=== PATIENT | male | born 1985 ===

== ENCOUNTER 2016-06-18 16:49 | Emergency (ER) | payer BC ==
[2016-06-18 17:13] VITALS: BP 126/71
--- NOTE | 2016-06-18 18:46 | UC ---
Throat Pain/Nasal Jared HPI - HPI Summary HPI Summary: complaint of cough for approx 1 week intermittent nasal congestion chest hurts when he coughs unable to sleep d/t cough coughing so hard at night he vomited 1x productive cough with yellow sputum intermittent headache denies sore throat, denies muscle aches or fever or chills has taken mucinex, dayquil, nyquil, airborne - History of Current Complaint Chief Complaint: UCGeneralIllness Stated Complaint: COUGH Time Seen by Provider: 06/18/16 18:33 Hx Obtained From: Patient - Allergies/Home Medications Allergies/Adverse Reactions: Allergies Allergy/AdvReac Type Severity Reaction Status Date / Time No Known Allergies Allergy Verified 06/18/16 17:13 Home Medications: Home Medications Qrbhdlnfcisee-Bjfulfoxaf-Azjxu [Nyquil Severe Cold/Flu 5-6.25-10-325 mg/15Ml] 1 liq PO DAILY 06/18/16 [History Confirmed 06/18/16] guaiFENesin ER TAB [Mucinex*] 600 mg PO BID 06/18/16 [History Confirmed 06/18/16 ] PMH/Surg Hx/FS Hx/Imm Hx Previously Healthy: Yes - Surgical History Surgical History: None - Family History Known Family History: Positive: Hypertension - parents Negative: Cardiac Disease, Diabetes - Social History Occupation: Employed Full-time Lives: With Family Alcohol Use: Rare Substance Use Type: None Smoking Status (MU): Never Smoked Tobacco Type: Smokeless Tobacco Review of Systems Constitutional: Negative Skin: Negative Eyes: Negative ENT: Sore Throat Respiratory: Cough Cardiovascular: Negative Gastrointestinal: Negative Genitourinary: Negative Motor: Negative Neurovascular: Negative Musculoskeletal: Negative Neurological: Negative Psychological: Negative All Other Systems Reviewed And Are Negative: Yes Physical Exam Triage Information Reviewed: Yes Appearance: No Pain Distress, Well-Nourished Vital Signs: Initial Vital Signs Temp 98.9 F 06/18/16 17:09 Pulse 73 06/18/16 17:09 Resp 14 06/18/16 17:09 BP 126/71 06/18/16 17:09 Pulse Ox 100 06/18/16 17:09 Vital Signs Reviewed: Yes Eyes: Positive: Conjunctiva Clear ENT: Positive: Pharynx normal, Nasal congestion, TMs normal. Negative: TM red, Tonsillar swelling, Tonsillar exudate Neck: Positive: No Lymphadenopathy Respiratory: Positive: Lungs clear, Normal breath sounds, No respiratory distress Cardiovascular: Positive: RRR, No Murmur, Pulses Normal Abdomen Description: Positive: Nontender, Soft Bowel Sounds: Positive: Present Musculoskeletal: Positive: No Edema Psychological Exam: Normal Skin Exam: Normal Throat Pain/Nasal Course/Dx - Differential Dx/Diagnosis Differential Diagnosis/HQI/PQRI: Influenza, URI Provider Diagnoses: bronchiitis Discharge - Discharge Plan Condition: Stable Disposition: HOME Prescriptions: Azithromycin TAB* [Zithromax TAB (Z-CHRIS) 250 mg #6 tabs] 2 tab PO .TODAY, THEN 1 DAILY #1 chris Benzonatate CAP* [Tessalon CAP*] 100 mg PO TID #30 cap Patient Education Materials: Acute Bronchitis (ED), Bronchospasm (ED) Referrals: Abner Hernandez MD [Primary Care Provider] - Additional Instructions: Please take antibiotic as directed Use your albuterol inhaler every 4-6 hours when needed for wheezing, shortness of breath or uncontrolled coughing. Increase fluids and rest Take acetaminophen or ibuprofen for fever or pain Please review your discharge instructions. If your symptoms do not improve please call your primary care provider or return to urgent care.
[2016-06-18] MEDS ORDERED: Albuterol HFA INHALER* 8 gm MDI INH ONE (18:50)
== END 2016-06-18 19:01 | disposition home or self-care (01) ==
LOC: UCCORT 16:49
DX: J40 Bronchitis, not specified as acute or chronic (principal)
CPT/HCPCS: 99202; A9270-GY; G0463

== ENCOUNTER 2016-07-04 16:39 | Emergency (ER) | payer BC ==
[2016-07-04 17:09] VITALS: BP 138/85
--- NOTE | 2016-07-04 17:39 | UC ---
Respiratory Complaint HPI - HPI Summary HPI Summary: cough , chest congestion / fever was on Z-vida 10 days ago but he is not improving - History of Current Complaint Chief Complaint: UCGeneralIllness Stated Complaint: COUGH/FEVER Time Seen by Provider: 07/04/16 17:26 Hx Obtained From: Patient Onset/Duration: Gradual Onset, Lasting Weeks - 2, Still Present Timing: Constant Severity Initially: Moderate Severity Currently: Moderate Character: Cough: Nonproductive Aggravating Factors: Exertion, Deep Breaths Alleviating Factors: Nothing Associated Signs And Symptoms: Positive: Fever, Chills, Wheezing, URI, Nasal Congestion. Negative: Dyspnea, Pleuritic Chest Pain, Hemoptysis, Dizziness, Calf Pain, Calf Swelling - Allergies/Home Medications Allergies/Adverse Reactions: Allergies Allergy/AdvReac Type Severity Reaction Status Date / Time No Known Allergies Allergy Verified 06/18/16 17:13 PMH/Surg Hx/FS Hx/Imm Hx Previously Healthy: Yes - Surgical History Surgical History: None - Family History Known Family History: Positive: Hypertension - parents Negative: Cardiac Disease, Diabetes - Social History Alcohol Use: Rare Substance Use Type: None Smoking Status (MU): Never Smoked Tobacco Type: Smokeless Tobacco Review of Systems Constitutional: Fever, Chills, Fatigue Skin: Negative Eyes: Negative ENT: Nasal Discharge Respiratory: Cough Cardiovascular: Negative Gastrointestinal: Negative Genitourinary: Negative All Other Systems Reviewed And Are Negative: Yes Physical Exam Triage Information Reviewed: Yes Appearance: Well-Appearing, No Pain Distress, Well-Nourished Vital Signs: Initial Vital Signs Temp 98.3 F 07/04/16 17:04 Pulse 73 07/04/16 17:04 Resp 16 07/04/16 17:04 BP 138/85 07/04/16 17:04 Pulse Ox 98 07/04/16 17:04 Vital Signs Reviewed: Yes Eye Exam: Normal Eyes: Positive: Conjunctiva Clear ENT: Positive: Normal ENT inspection, Hearing grossly normal, Pharynx normal Dental Exam: Normal Neck: Positive: Supple, Nontender, No Lymphadenopathy Respiratory: Positive: Chest non-tender, Lungs clear, Normal breath sounds Cardiovascular: Positive: RRR, No Murmur, Pulses Normal Musculoskeletal Exam: Normal Skin Exam: Normal UC Diagnostic Evaluation - Laboratory O2 Sat by Pulse Oximetry: 98 Respiratory Course/Dx - Differential Dx/Diagnosis Provider Diagnoses: viral bronchitis Discharge - Discharge Plan Condition: Stable Disposition: HOME Prescriptions: Guaifenesin-Codeine [Cheratussin AC] 10 ml PO Q8HR PRN #120 ml MDD 30 ml PRN Reason: Cough Patient Education Materials: Acute Bronchitis (ED) Referrals: Abner Hernandez MD [Primary Care Provider] - 7 Days Additional Instructions: viral bronchitis no need for abx at this time
== END 2016-07-04 17:58 | disposition home or self-care (01) ==
LOC: UCCORT 16:39
DX: J40 Bronchitis, not specified as acute or chronic (principal)
CPT/HCPCS: 99212; G0463